=== PATIENT | female | born 1990 | race Caucasian/White ===

== ENCOUNTER 2016-09-18 09:08 | Emergency (ER) | payer MEDICAID ==
[~2016-09-18] VITALS: Ht 167.6 cm; Wt 104.0 kg
[~2016-09-18 09:08] MED LIST: CLIN150 PO; IBUP800T23 PO
[2016-09-18 09:10] VITALS: BP 134/80; PULSE 94; RESP 20; TEMP 97.7; O2SAT 100
[2016-09-18] MEDS ORDERED: AMOX875T PO (09:49)
--- NOTE | 2016-09-18 09:49 | PD ---
HPI . gum infection Chief Complaint: Oral / Dental Pain or Problem Time Seen by Provider: 09:34 Travel History International Travel<30 days: No Contact w/Intl Traveler<30days: No Traveled to known affect area: No History of Present Illness HPI Patient presents complaining of infected gums, right maxillary. Onset was about 2 days ago. It has been getting progressively worse. She states that it started when she scraped her gums on granola. She has been rinsing her mouth with a peroxide solution with temporary relief of symptoms. Pain is achy and constant and is rated at 4-6/10. PFSH Past Medical History ?: LMP: 07/03/16 Past Surgical History Gynecologic Surgery: Yes (c section) Social History Alcohol Use: Yes (social) Tobacco Use: Yes (04/07 day) Substance Use: No Allergies-Medications (Allergen,Severity, Reaction): Coded Allergies: Sulfa (Verified Allergy, Unknown, 09/18/16) Reported Meds & Prescriptions Reported Meds & Active Scripts Active Ibuprofen 800 Mg Tab 800 Mg PO TID PRN Cleocin (Clindamycin HCl) 150 Mg Cap 300 Mg PO Q8 7 Days Review of Systems Except as stated in HPI: all other systems reviewed are Neg General / Constitutional: No: Fever, Chills HENT: Positive: Other (gingival swelling and pain), No: Gingival Bleeding Physical Exam Narrative GENERAL: Awake and alert and in no acute distress. SKIN: Warm and dry. HEAD: Atraumatic. Normocephalic. She does have some swelling of the right cheek. ENT: Erythema and edema of the right maxillary gingiva. EYES: Pupils equal and round. NECK: Trachea midline. No cervical lymphadenopathy. CARDIOVASCULAR: Regular rate and rhythm. RESPIRATORY: No accessory muscle use. MUSCULOSKELETAL: No obvious deformities. No edema. NEUROLOGICAL: Awake and alert. No obvious cranial nerve deficits. Motor grossly within normal limits. Normal speech. PSYCHIATRIC: Appropriate mood and affect; insight and judgment normal. Data Data Last Documented VS Vital Signs Date Time Temp Pulse Resp B/P Pulse Ox O2 Delivery O2 Flow Rate FiO2 09/18/16 09:10 97.7 94 20 134/80 100 Room Air MDM Medical Decision Making Medical Screen Exam Complete: Yes Emergency Medical Condition: Yes Differential Diagnosis Differential diagnosis of a toothache includes but is not limited to dental caries, dental abscess, gingivitis, drug-seeking behavior. Narrative Course Patient presents complaining with pain and swelling of her gingiva. She will be treated with amoxicillin. She will use Tylenol and Orajel for symptomatically relief. He has been instructed to continue peroxide rinses or use warm saltwater rinses. Diagnosis Primary Impression: Gingivitis Referrals: Dentist Patient Instructions: General Instructions, Gingivitis (DC) Med/Other Pt SpecificInfo: Prescription(s) given Scripts Amoxicillin 875 Mg Und026 Mg PO BID 10 Days Ref 0 Prov:Joselyn Gleason MD 09/18/16 Disposition: 01 DISCHARGE HOME Condition: Stable Joselyn Gleason MD Sep 18, 2016 09:49
== END 2016-09-18 09:55 | disposition home or self-care (01) ==
LOC: NEPD 09:08
DX: O99.89 Other specified diseases and conditions complicating pregnancy, childbirth and the puerperium (principal); K05.10 Chronic gingivitis, plaque induced; F17.200 Nicotine dependence, unspecified, uncomplicated; Z3A.00 Weeks of gestation of pregnancy not specified
CPT/HCPCS: 99283

== ENCOUNTER 2016-09-30 09:13 | Observation (INO) | payer MEDICAID ==
[~2016-09-30] VITALS: Ht 167.6 cm; Wt 98.0 kg
[~2016-09-30 09:13] MED LIST changes: +AMOX875T PO
[2016-09-30 09:14] VITALS: BP 146/84; PULSE 95; RESP 20; TEMP 97.9; O2SAT 98
--- NOTE | 2016-09-30 09:49 | PD ---
HPI Chief Complaint: Related Problem Time Seen by Provider: 09:49 Travel History International Travel<30 days: No Contact w/Intl Traveler<30days: No Traveled to known affect area: No History of Present Illness HPI 25-year-old female came to the emergency room with history of the cramping vaginal bleed since last night. Patient is about 13-14 weeks with twin pregnancies. She does have an OB and she called the OBs office this morning and was asked to go to the [facility] but she was closest to this hospital and decided to come in because she was very uncomfortable. Patient says that she has gone to the restroom once a twice and has passed large amount of clots there. She looks very uncomfortable. Patient had intercourse last night after which all this started. She is A0. Vital signs were stable. [facility], [facility] Past Medical History Narrative Medical List of her past medical, surgical, social and family history is reviewed from the nursing note. ?: Past Surgical History Gynecologic Surgery: Yes (c section) Social History Alcohol Use: Yes (social) Tobacco Use: Yes (/2 day) Substance Use: No Allergies-Medications (Allergen,Severity, Reaction): Coded Allergies: Sulfa (Verified Allergy, Unknown, 09/18/16) Comments List of her allergies reviewed from the nursing note. Reported Meds & Prescriptions Reported Meds & Active Scripts Active Narrative Medication List of her home medications reviewed from the nursing note. Review of Systems Except as stated in HPI: all other systems reviewed are Neg Physical Exam Narrative GENERAL: Awake, alert, anxious, moderate distress SKIN: Focused skin assessment warm/dry. HEAD: Atraumatic. Normocephalic. EYES: Pupils equal and round. No scleral icterus. No injection or drainage. ENT: No nasal bleeding or discharge. Mucous membranes pink and moist. NECK: Trachea midline. No JVD. CARDIOVASCULAR: Regular rate and rhythm. No murmur appreciated. RESPIRATORY: No accessory muscle use. Clear to auscultation. Breath sounds equal bilaterally. GASTROINTESTINAL: Abdomen soft, non-tender, nondistended. Hepatic and splenic margins not palpable. : Patient had significant blood clot and bleeding from the cervix. This was swabbed off with multiple swabs. Os seemed to be open with products of conception coming out. MUSCULOSKELETAL: No obvious deformities. No clubbing. No cyanosis. No edema. NEUROLOGICAL: Awake and alert. No obvious cranial nerve deficits. Motor grossly within normal limits. Normal speech. PSYCHIATRIC: Appropriate mood and affect; insight and judgment normal. Data Data Last Documented VS Vital Signs Date Time Temp Pulse Resp B/P Pulse Ox O2 Delivery O2 Flow Rate FiO2 09/30/16 09:14 97.9 95 20 146/84 98 Orders Beta Hcg (Quant/Titer) (09/30/16 09:51) Complete Blood Count With Diff (09/30/16 09:51) Basic Metabolic Panel (Bmp) (09/30/16 09:51) Type And Screen (09/30/16 09:51) Urinalysis - C+S If Indicated (09/30/16 09:51) Acetamin-Hydrocod 325-5 Mg ([place] 5-325 (09/30/16 10:45) Sodium Chlor 0.9% 1000 Ml Inj (Ns 1000 M (09/30/16 11:00) Admit Order (Ed Use Only) (09/30/16 11:18) Labs Laboratory Tests Test 09/30/16 09/30/16 10:40 11:00 White Blood Count 10.3 TH/MM3 Red Blood Count 4.81 MIL/MM3 Hemoglobin 13.2 GM/DL Hematocrit 38.7 % Mean Corpuscular Volume 80.3 FL Mean Corpuscular Hemoglobin 27.5 PG Mean Corpuscular Hemoglobin 34.2 % Concent Red Cell Distribution Width 15.5 % Platelet Count 301 TH/MM3 Mean Platelet Volume 9.0 FL Neutrophils (%) (Auto) 74.2 % Lymphocytes (%) (Auto) 20.5 % Monocytes (%) (Auto) 3.7 % Eosinophils (%) (Auto) 1.1 % Basophils (%) (Auto) 0.5 % Neutrophils # (Auto) 7.6 TH/MM3 Lymphocytes # (Auto) 2.1 TH/MM3 Monocytes # (Auto) 0.4 TH/MM3 Eosinophils # (Auto) 0.1 TH/MM3 Basophils # (Auto) 0.1 TH/MM3 CBC Comment DIFF FINAL Differential Comment Sodium Level 143 MEQ/L Potassium Level 3.5 MEQ/L Chloride Level 109 MEQ/L Carbon Dioxide Level 23.5 MEQ/L Anion Gap 11 MEQ/L Blood Urea Nitrogen 2 MG/DL Creatinine 0.51 MG/DL Estimat Glomerular Filtration 148 ML/MIN Rate Random Glucose 83 MG/DL Calcium Level 9.2 MG/DL Human Chorionic Gonadotropin, 915 MIU/ML Quant Blood Type O POSITIVE Antibody Screen NEGATIVE Blood Bank Comment Urine Color LIGHT-YELLOW Urine Turbidity CLEAR Urine pH 7.0 Urine Specific [place] 1.004 Urine Protein NEG mg/dL Urine Glucose (UA) NEG mg/dL Urine Ketones NEG mg/dL Urine Occult Blood MOD Urine Nitrite NEG Urine Bilirubin NEG Urine Urobilinogen LESS THAN 2.0 MG/DL Urine Leukocyte Esterase NEG Urine WBC LESS THAN 1 /hpf Urine Squamous Epithelial <1 /hpf Cells Microscopic Urinalysis Comment CULT NOT INDICATED MDM Medical Decision Making Medical Screen Exam Complete: Yes Emergency Medical Condition: Yes Medical Record Reviewed: Yes Differential Diagnosis That , inevitable , second trimester Narrative Course 11:30 AM I spoke with Dr. Burch who is the OB hospitalist and he came down to see the patient. He agreed to admit the patient and watch her overnight. Patient was given 2 hydrocodone tablets for pain. Her blood test results are within acceptable limits. Beta-hCG is remarkably low. Procedures EKG Prior to Arrival: No Physician Communication Physician Communication Dr. Burch Diagnosis Primary Impression: Inevitable Admitting Information Admitting Physician Requests: Observation Gisella Mohan MD Sep 30, 2016 09:49
[2016-09-30] MEDS ORDERED: ACETAMINOPHEN/HYDROcodone 325 MG/5 MG TAB PO ONE (10:45)
[2016-09-30] MEDS ORDERED: SODIUM CHLOR 0.9% 1000 ML INJ 1,000 ML IV ONE (11:00)
[2016-09-30 11:06] LABS: AUTOMATED NEUTROPHIL # 7.6 TH/MM3 (1.8-7.7); BASOPHIL # 0.1 TH/MM3 (0-0.2); BASOPHIL % 0.5 % (0.0-2.0); EOSINOPHIL # 0.1 TH/MM3 (0-0.4); EOSINOPHIL % 1.1 % (0.0-4.0); HEMATOCRIT 38.7 % (35.0-46.0); HEMO FLAGS DIFF FINAL; LYMPH % 20.5 % (9.0-44.0); LYMPHOCYTE # 2.1 TH/MM3 (1.0-4.8); MEAN CELL VOLUME 80.3 FL (80.0-100.0); MEAN CORPUSCULAR HEMOGLOBIN 27.5 PG (27.0-34.0); MEAN CORPUSCULAR HGB CONC 34.2 % (32.0-36.0); MONO % 3.7 % (0.0-8.0); NEUT % 74.2 % (16.0-70.0); PLATELET COUNT 301 TH/MM3 (150-450); RED BLOOD COUNT 4.81 MIL/MM3 (4.00-5.30); RED CELL DISTRIBUTION WIDTH 15.5 % (11.6-17.2); WHITE BLOOD COUNT 10.3 TH/MM3 (4.0-11.0)
[2016-09-30 11:17] LABS: BICARBONATE 23.5 MEQ/L (21.0-32.0); POTASSIUM 3.5 MEQ/L (3.5-5.1)
[2016-09-30] MEDS ORDERED: ACETAMINOPHEN 325 MG TAB PO PRN ×2 (11:30→11:45)
[2016-09-30] MEDS ORDERED: ONDANSETRON HCL 4 MG/2 ML VIAL IV PRN (11:30)
[2016-09-30] MEDS ORDERED: SODIUM CHLORIDE 0.9% FLUSH 10 ML FLUSH IV FLUSH PRN (11:30)
--- NOTE | 2016-09-30 11:30 | HHI.HP ---
HPI Chief Complaint Vaginal bleeding. Date Seen: Sep 30, 2016 Travel History International Travel<30 Days: No Contact w/Intl Traveler<30Days: No Known Affected Area: No History of Present Illness HPI Patient is a 25 year old at 14 weeks twin gestation who presented with vaginal bleeding and is admitted to the [facility] for threatened . Vaginal bleeding started last night and was accompanied by painful cramping. The cramping subsided briefly and then became worse. She has been bleeding a moderate amount and continues to have cramping and pain. She denies any passing of tissue but has noticed clots. care is with a [facility] provider. History Past Medical History Medical History: Denies Significant Hx Obstetric History Obstetric History at term for suspected macrosomia Past Surgical History Surgical History: No Previous Surgery Family History Family History: Negative Social History Alcohol Use: No Tobacco Use: No Substance Abuse: No Allergies-Medications (Allergen,Severity, Reaction): Coded Allergies: Sulfa (Verified Allergy, Unknown, 09/18/16) Home Meds Discontinued Scripts Amoxicillin 875 Mg Dep579 Mg PO BID 10 Days Ref 0 Prov:Joselyn Gleason MD 09/18/16 Ibuprofen 800 Mg Gho009 Mg PO TID PRN (PAIN SCALE 4 TO 10) #30 TAB Prov:Gisella Mohan MD 01/14/16 Clindamycin Hcl (Cleocin)150 Mg Ibi189 Mg PO Q8 7 Days Prov:Gisella Mohan MD 01/14/16 Review of Systems Except as stated in HPI: all other systems reviewed are Neg General / Constitutional: No: Fever, Chills Eyes: No: Visual changes HENT: No: Headaches Cardiovascular: No: Chest Pain or Discomfort Respiratory: No: Short of Breath Gastrointestinal: No: Nausea Genitourinary: Pelvic Pain, Vaginal Bleeding, No: Dysuria, Discharge Musculoskeletal: No: Edema Neurologic: No: Headache Psychiatric: No: Substance Abuse Physical Exam Vital Signs Date Time Temp Pulse Resp B/P Pulse Ox O2 Delivery O2 Flow Rate FiO2 09/30/16 09:14 97.9 95 20 146/84 98 Narrative GENERAL: Well-nourished, well-developed patient. SKIN: Warm and dry. HEAD: Normocephalic and atraumatic. EYES: No scleral icterus. No injection or drainage. ENT: No nasal drainage noted. Mucous membranes pink. Airway patent. NECK: Supple, trachea midline. No JVD. CARDIOVASCULAR: Regular rate and rhythm without murmurs, gallops, or rubs. RESPIRATORY: Breath sounds equal bilaterally. No accessory muscle use. ABDOMEN/GI: Abdomen soft, tender to palpation in lower abdomen, bowel sounds present, no rebound, no guarding Gravid to 14 weeks size GENITOURINARY: External Genitalia: intact and normal in appearance BUS glands: normal Cervix: posterior Dilatation: 0 Effacement: 0 Station: -3 Speculum exam: External cervical os open, internal cervical os is closed. Clot and mucus apparent but no visible tissue/products of conception. EXTREMITIES: No cyanosis or edema. BACK: Nontender without obvious deformity. NEUROLOGICAL: Awake and alert. Motor and sensory grossly within normal limits. Normal speech. Data Data Vital Signs Reviewed: Yes Orders Beta Hcg (Quant/Titer) (09/30/16 09:51) Complete Blood Count With Diff (09/30/16 09:51) Basic Metabolic Panel (Bmp) (09/30/16 09:51) Type And Screen (09/30/16 09:51) Urinalysis - C+S If Indicated (09/30/16 09:51) Acetamin-Hydrocod 325-5 Mg ([place] 5-325 (09/30/16 10:45) Sodium Chlor 0.9% 1000 Ml Inj (Ns 1000 M (09/30/16 11:00) Admit Order (Ed Use Only) (09/30/16 11:18) Us Ob Pelvis <14wks Fetus (09/30/16 ) Labs Laboratory Tests Test 09/30/16 10:40 White Blood Count 10.3 Red Blood Count 4.81 Hemoglobin 13.2 Hematocrit 38.7 Mean Corpuscular Volume 80.3 Mean Corpuscular Hemoglobin 27.5 Mean Corpuscular Hemoglobin 34.2 Concent Red Cell Distribution Width 15.5 Platelet Count 301 Mean Platelet Volume 9.0 Neutrophils (%) (Auto) 74.2 Lymphocytes (%) (Auto) 20.5 Monocytes (%) (Auto) 3.7 Eosinophils (%) (Auto) 1.1 Basophils (%) (Auto) 0.5 Neutrophils # (Auto) 7.6 Lymphocytes # (Auto) 2.1 Monocytes # (Auto) 0.4 Eosinophils # (Auto) 0.1 Basophils # (Auto) 0.1 CBC Comment DIFF FINAL Differential Comment Sodium Level 143 Potassium Level 3.5 Chloride Level 109 Carbon Dioxide Level 23.5 Anion Gap 11 Blood Urea Nitrogen 2 Creatinine 0.51 Estimat Glomerular Filtration 148 Rate Random Glucose 83 Calcium Level 9.2 Human Chorionic Gonadotropin, 915 Quant Assessment/Plan Problem List: (1) Threatened (2) Twin gestation in first trimester Assessment and Plan 25 year old at 14 weeks twin gestation. Threatened : Hgb stable at 13.2 BHCG low for gestational age at 915 Internal cervical os is closed without visible products of conception. Plan: Admit for 24 hour observation. Will obtain Pelvic US for further evaluation of FHT and cause of vaginal bleeding. [place] PRN pain, IV LR for hydration, Zofran PRN nausea Repeat BHCG Monitor H/H sdw Dr. Burch, Dr. Kathryn Alva R1, and Kait Blank MS4 ADDENDUM: Pelvic US significant for intrauterine demise at 9-6/7 weeks gestation. Given this early gestational age and that it is a chacon , okay to discharge patient home for outpatient follow-up today with Dr. Angel as this is what patient strongly desires. Patient had an US that put her at 9 weeks gestation 5 weeks ago. Suspect that there was IUFD at that time and the fetus stopped growing. At this time, the patient is starting to pass the demise. Also suspect that the twin was reabsorbed at some point in the last several weeks resulting in a chacon today. The option for D&C was discussed but patient would like to try to pass the uterine contents first. Counseling and education provided regarding expectations of miscarriage. Patient expresses understanding and agrees to return to ED if she has excessive bleeding, pain, fever, or chills. dw Dr. Burch, Dr. Kathryn Alva R1, and Kait Blank MS4 Katy Richardson MD R2 Sep 30, 2016 11:30
[2016-09-30 11:31] LABS: BLOOD, URINE MOD (NEG); GLUCOSE,URINE NEG (NEG); KETONE, URINE NEG (NEG); NITRITE,URINE NEG (NEG); SQUAMOUS EPITHELIAL CELL URINE <1 /hpf (0-5); URINE COLOR LIGHT-YELLOW (YELLW/STRAW)
[2016-09-30 11:36] LABS: COMMENT (UR) CULT NOT INDICATED; CULTURE IF INDICATED CULT NOT INDICATED
[2016-09-30] MEDS ORDERED: ACETAMINOPHEN/HYDROcodone 325 MG/5 MG TAB PO PRN ×2 (11:45)
[2016-09-30] MEDS ORDERED: LACTATED RINGER'S 1000 ML INJ 1,000 ML IV SCH (12:30)
[2016-09-30 13:25] VITALS: BP 103/59; PULSE 87; RESP 18; O2SAT 98
--- NOTE | 2016-09-30 13:27 | RADRPT ---
EXAM DATE/TIME: 09/30/2016 12:19 [facility] COMPARISON: No previous studies available for comparison. INDICATIONS : Pelvic pain and passing clots. LAB(S): Beta-hC MEDICAL HISTORY : . SURGICAL HISTORY : section. ENCOUNTER: Initial ACUITY: 2 days PAIN SCORE: 2/10 LOCATION: Bilateral pelvis MEASUREMENTS: UTERUS: 17.1 x 8.2 x 4.9 cm ENDOMETRIAL STRIPE: 7 mm RIGHT OVARY: 4.8 x 2.1 x 1.8 cm LEFT OVARY: 3.0 x 2.3 x 2.4 cm FREE FLUID: No CROWN RUMP LENGTH: 2.99 = 9 WKS 6 DAYS FHR: 0 BPM FINDINGS: UTERUS: A misshapen gestational sac is present in the lower uterine segment. A element is noted with no cardiac activity detectable. RIGHT OVARY: Ovary contains no mass or significant cystic lesion. LEFT OVARY: Ovary contains no mass or significant cystic lesion. MISCELLANEOUS: No free fluid. CONCLUSION: Appearance consistent with intrauterine demise Ermias Hernandez MD on September 30, 2016 at 13:18 Board Certified Radiologist. This report was verified electronically.
--- NOTE | 2016-09-30 14:08 | HHI.DCPOC ---
Discharge Care Plan Diagnosis: (1) IUFD at less than 20 weeks of gestation Report Symptoms to Your Doctor -Temperature above 100.5 degrees -Redness, of incision or excessive or foul smelling drainage -Unusual pain or calf pain -Increased vaginal bleeding -Painful or difficulty urinating -Feelings of extreme sadness or anxiety after 2 weeks Goals to Promote Your Health * To prevent worsening of your condition and complications * To maintain your health at the optimal level Directions to Meet Your Goals Take your medications as prescribed Follow your dietary instruction Follow activity as directed Ensure plenty of rest for recovery Drink fluids for hydration Keep your appointments as scheduled Take your immunizations and boosters as scheduled If your symptoms worsen call your PCP, if no PCP go to Urgent Care Center or Emergency Room Smoking is Dangerous to Your Health. Avoid second hand smoke Call the 24-hour crisis hotline for domestic abuse at Katy Richardson MD R2 Sep 30, 2016 14:08
[2016-09-30] MEDS ORDERED: SODIUM CHLORIDE 0.9% FLUSH 10 ML FLUSH IV FLUSH SCH (21:00)
== END 2016-09-30 15:06 | disposition home or self-care (01) ==
LOC: NEPD 09:13 → NEDA 11:20
PROVIDERS: ADMIT Obstetrics & Gynecology Maternal & Fetal Medicine; ATTEND Obstetrics & Gynecology Maternal & Fetal Medicine
DX: O20.0 Threatened abortion (principal); O30.002 Twin pregnancy, unspecified number of placenta and unspecified number of amniotic sacs, second trimester; O31.22X1 Continuing pregnancy after intrauterine death of one fetus or more, second trimester, fetus 1; O99.332 Smoking (tobacco) complicating pregnancy, second trimester; F17.200 Nicotine dependence, unspecified, uncomplicated; Z3A.14 14 weeks gestation of pregnancy
CPT/HCPCS: 76801; 80048; 81001; 84702; 85025; 86850; 86900; 86901; 99285; G0378; J7030; 76817

== ENCOUNTER 2017-02-11 15:56 | Emergency (ER) | payer MEDICAID ==
[~2017-02-11] VITALS: Ht 170.2 cm; Wt 81.0 kg
[2017-02-11 15:57] VITALS: BP 131/61; PULSE 88; RESP 18; TEMP 98.8; O2SAT 98
--- NOTE | 2017-02-11 17:50 | PD ---
Physical Exam Date Seen by Provider: Feb 11, 2017 Time Seen by Provider: 15:30 Narrative Pt presented to the ED for evaluation of a laceration to her right thumb. Pt states she cut herself washing dishes. She states it is throbbing and reports her pain is an 8/10. No alleviating factors, pain is exacerbated with movement.Unknown when her last tetanus vaccine was administered. Data Data Last Documented VS Vital Signs Date Time Temp Pulse Resp B/P (MAP) Pulse Ox O2 Delivery O2 Flow Rate FiO2 02/11/17 15:57 98.8 88 18 131/61 (84) 98 Room Air [facility] Medical Record Reviewed: Yes Supervised Visit with RANDI: No Narrative Course Pt presented for evaluation of a finger laceration. VSS. Pt is awaiting bed placement. Diagnosis Primary Impression: Left against medical advice Divine Coronado Feb 11, 2017 17:50
== END 2017-02-11 17:56 | disposition left against medical advice (07) ==
LOC: NED 15:56
DX: S61.011A Laceration without foreign body of right thumb without damage to nail, initial encounter (principal); W45.8XXA Other foreign body or object entering through skin, initial encounter; Y93.G1 Activity, food preparation and clean up
CPT/HCPCS: 99281